=== PATIENT | female | born 1970 | race African-American/Black ===

== ENCOUNTER 2017-03-04 00:13 | Emergency (ER) | payer MEDICAID ==
[~2017-03-04] VITALS: Ht 180.3 cm; Wt 83.0 kg
[2017-03-04] MEDS ORDERED: DIPHENHYDRAMINE 50MG/ML VIAL IM ONE (01:30)
[2017-03-04] MEDS ORDERED: METHYLPREDNISOLONE SOD SUCC 125 MG/2 ML VIAL IV STA (01:30)
[2017-03-04 02:47] VITALS: BP 94/46
== END 2017-03-04 02:47 | disposition home or self-care (01) ==
LOC: ER 00:13
DX: L50.9 Urticaria, unspecified (principal); F17.210 Nicotine dependence, cigarettes, uncomplicated
CPT/HCPCS: 96372; 96374; 99284; J1200; J2930